=== PATIENT | male | born 1955 | race Caucasian/White ===

== ENCOUNTER → 2021-06-04 | Outpatient (REF) | payer MEDICARE, BC | LOC: M SFHCCLAY 11:39 | PROVIDERS: ATTEND Nurse Practitioner Family | DX: E78.5 Hyperlipidemia, unspecified (principal); I10 Essential (primary) hypertension; Z13.1 Encounter for screening for diabetes mellitus; Z79.899 Other long term (current) drug therapy ==

== ENCOUNTER → 2021-06-04 | Outpatient (CLI) | payer MEDICARE, BC | LOC: M CLY 13:17 | PROVIDERS: ATTEND Nurse Practitioner Family | DX: M19.011 Primary osteoarthritis, right shoulder (principal); M25.511 Pain in right shoulder; E78.5 Hyperlipidemia, unspecified; I10 Essential (primary) hypertension; Z13.1 Encounter for screening for diabetes mellitus; Z79.899 Other long term (current) drug therapy | CPT/HCPCS: 73030; 80053; 80061; 83036; 85027; G0463 ==

== ENCOUNTER → 2021-08-28 | Outpatient (CLI) | payer MEDICARE, BC | LOC: M CLY 10:02 | PROVIDERS: ATTEND Nurse Practitioner Family | DX: M19.041 Primary osteoarthritis, right hand (principal); M79.641 Pain in right hand ==